=== PATIENT | female | born 1995 ===

== ENCOUNTER 2023-02-06 05:44 | Inpatient (IN) | payer SELFPAY ==
[2023-02-06] MEDS: Lactated Ringers 1,000 ML IV SCH ×2 (07:00→13:24)
[2023-02-06] MEDS ORDERED: Water For Irrigation,Sterile 1,000 ML Container IRR PRN (07:30)
[2023-02-06] MEDS ORDERED: Misoprostol 200 MCG Tab PO PRN (07:30)
[2023-02-06] MEDS ORDERED: Butorphanol 1 MG/ML SDV IVPUSH PRN (07:30)
[2023-02-06] MEDS ORDERED: Sodium Chloride 0.9% 20 ML SDV IV PRN (07:30)
[2023-02-06] MEDS ORDERED: Methylergonovine 0.2 MG/1 ML Amp IM PRN (07:30)
[2023-02-06] MEDS ORDERED: Oxytocin/0.9 % Sodium Chloride 30 UNIT/500 ML BAG IV SCH ×2 (07:30→10:45)
[2023-02-06] MEDS ORDERED: Lidocaine 1% 50 ML MDV INJECT PRN (07:30)
[2023-02-06] MEDS ORDERED: Sodium Chloride 0.9% 2.5 ML Syringe FLUSH PRN (07:30)
[2023-02-06] MEDS ORDERED: Sodium Chloride 0.9% 10 ML Syringe FLUSH PRN (07:30)
[2023-02-06] MEDS ORDERED: Tranexamic Acid 1,000 MG in Sodium Chloride 0.9% 100 ML IV PRN (07:30)
[2023-02-06] MEDS ORDERED: Carboprost Tromethamine 250 MCG/1 ML Amp IM PRN (07:30)
[2023-02-06] MEDS ORDERED: Bupivacaine 0.5% 10 ML SDV ONE (07:35)
[2023-02-06] MEDS ORDERED: Ropivacaine/PF 400 MG/200 ML PCA ONE (07:35)
[2023-02-06] MEDS ORDERED: ePHEDrine 50 MG/ML SDV IVPUSH PRN ×2 (08:00)
[2023-02-06] MEDS ORDERED: Ropivacaine HCl/PF 400 MG in Premix Bag 1 BAG EPIDUR SCH (08:00)
[2023-02-06] MEDS ORDERED: Phenylephrine HCl 0.5 MG/5 ML AMP IVPUSH PRN (08:00)
[2023-02-06] MEDS ORDERED: Lanolin 100% Cream 7 GM Tube TOP PRN (23:05)
[2023-02-06] MEDS ORDERED: Bisacodyl 10 MG Supp RECTAL PRN (23:05)
[2023-02-06] MEDS ORDERED: Acetaminophen 500 MG Tab PO PRN ×2 (23:05)
[2023-02-06] MEDS ORDERED: Ibuprofen 400 MG Tab PO PRN (23:05)
[2023-02-06] MEDS ORDERED: Witch Hazel Medicated Pads 40/Jar TOP PRN (23:05)
[2023-02-06] MEDS ORDERED: oxyCODONE 5 MG Tab PO PRN (23:05)
[2023-02-06] MEDS ORDERED: Benzocaine/Menthol 20%-0.5% Spray 78 GM Cannister TOP PRN (23:05)
[2023-02-07] MEDS: Ibuprofen 800 MG Tab PO PRN ×2 (00:56→19:31)
[2023-02-07] MEDS: Docusate Sodium 100 MG Cap PO PRN ×2 (00:56→13:29)
[2023-02-08] MEDS: Ibuprofen 800 MG Tab PO PRN (08:05)
[2023-02-08] MEDS: Docusate Sodium 100 MG Cap PO PRN (08:06)
== END 2023-02-08 15:20 | disposition home or self-care (01) | DRG 807 ==
LOC: MW.OBCHECK 05:44 → MW.OB 05:45 → MW.OBCHECK 07:30 → MW.OB 07:30 → OBSVTOIN 17:18 → MW.OB 22:35
PROVIDERS: ADMIT Obstetrics & Gynecology; ATTEND Obstetrics & Gynecology
PROC: 10D07Z6 Extraction of Products of Conception, Vacuum, Via Natural or Artificial Opening (ICD-10-PCS; principal; 2023-02-06)
PROC: 10907ZC Drainage of Amniotic Fluid, Therapeutic from Products of Conception, Via Natural or Artificial Opening (ICD-10-PCS; 2023-02-06)
PROC: 0HQ9XZZ Repair Perineum Skin, External Approach (ICD-10-PCS; 2023-02-06)
PROC: 3E033VJ Introduction of Other Hormone into Peripheral Vein, Percutaneous Approach (ICD-10-PCS; 2023-02-06)
PROC: 3E0R3BZ Introduction of Anesthetic Agent into Spinal Canal, Percutaneous Approach (ICD-10-PCS; 2023-02-06)
PROC: 00HU33Z Insertion of Infusion Device into Spinal Canal, Percutaneous Approach (ICD-10-PCS; 2023-02-06)
DX: O70.0 First degree perineal laceration during delivery (principal); Z37.0 Single live birth; Z3A.39 39 weeks gestation of pregnancy
CPT/HCPCS: 01967; 36415; 51702; 59025; 59409; 85014; 85018; 85027; 85460; 86592; 86850; 86900; 86901; A9270-GY; J2370; J2590; J2790; J2795; J3490; J7120